=== PATIENT | female | born 1985 | race Hispanic/Latino ===

== ENCOUNTER 2017-03-16 00:38 | Emergency (ER) | payer OTHER ==
[~2017-03-16] VITALS: Ht 157.5 cm; Wt 79.8 kg
[2017-03-16] MEDS ORDERED: MOTRIN800 MG PO (01:46)
[2017-03-16] MEDS ORDERED: VALIUM5 MG PO (01:50)
[2017-03-16 02:15] VITALS: BP 126/88
== END 2017-03-16 02:15 | disposition home or self-care (01) ==
LOC: EME 00:38 → EXP 00:38
DX: S93.402A Sprain of unspecified ligament of left ankle, initial encounter (principal); S39.012A Strain of muscle, fascia and tendon of lower back, initial encounter; W18.30XA Fall on same level, unspecified, initial encounter
CPT/HCPCS: 72100; 73610; 99281; 99284

== ENCOUNTER 2018-03-06 14:24 | Emergency (ER) | payer OTHER ==
[~2018-03-06] VITALS: Ht 162.6 cm; Wt 84.1 kg
[~2018-03-06 14:24] MED LIST: MOTRIN800 MG PO; VALIUM5 MG PO
[2018-03-06] MEDS ORDERED: PEN-VEE K,VEET500 MG PO (15:26)
[2018-03-06] MEDS ORDERED: MOTRIN800 MG PO (15:26)
[2018-03-06 15:43] VITALS: BP 134/78
== END 2018-03-06 15:44 | disposition home or self-care (01) ==
LOC: EME 14:24
DX: K08.89 Other specified disorders of teeth and supporting structures (principal)
CPT/HCPCS: 99281; 99283